=== PATIENT | female | born 1990 | race Asian ===

== ENCOUNTER 2017-07-18 09:55 | Emergency (ER) | payer OTHER ==
[2017-07-18 10:12] VITALS: BP 109/70
[2017-07-18] MEDS ORDERED: PROPARACAINE 0.5% OPHTH DROPS 15 ML EACHEYE STA (11:55)
--- NOTE | 2017-07-18 11:55 | ED Physician Documentation ---
PD HPI OPHTHO - Stated complaint Stated Complaint: RIGHT EYE PAIN - Chief complaint Chief Complaint: Heent - History obtained from History obtained from: Patient - History of Present Illness Timing - onset: How many days ago (2) Timing - duration: Days Timing - details: Gradual onset, Still present Location: Right (upper lateral eyelid) Quality / character: Burning, Aching Associated symptoms: Redness Contributing factors: No: Exposed to conjunctivitis, Wears contacts Similar symptoms before: Has not had sx before (does not have history of cold sores around lips nor orally.) Recently seen: Not recently seen Review of Systems Constitutional: denies: Fever, Chills Eyes: denies: Loss of vision, Decreased vision, Photophobia GI: denies: Nausea, Vomiting, Diarrhea Skin: reports: Lesions Musculoskeletal: denies: Neck pain, Back pain PD PAST MEDICAL HISTORY - Past Medical History Past Medical History: No - Past Surgical History Past Surgical History: No - Present Medications Home Medications: Ambulatory Orders Medication Instructions Recorded Confirmed Acyclovir 400 mg PO 5XD #25 tablet 07/18/17 Mupirocin 1 applic TP TID #15 oint...g. 07/18/17 Naproxen 375 mg PO BID #20 tablet 07/18/17 Sulfamethox/Trimeth 800/160 1 each PO BID #10 tablet 07/18/17 [Bactrim Ds 800/160] - Allergies Allergies/Adverse Reactions: Allergies Allergy/AdvReac Type Severity Reaction Status Date / Time No Known Drug Allergies Allergy Verified 07/18/17 10:12 - Social History Does the pt smoke?: No Smoking Status: Never smoker Does the pt drink ETOH?: No Does the pt have substance abuse?: No - Immunizations Immunizations are current?: Yes - POLST Patient has POLST: No PD ED PE NORMAL - Vitals Vital signs reviewed: Yes - General General: Alert and oriented X 3, No acute distress, Well developed/nourished - HEENT HEENT: PERRL, EOMI, Pharynx benign (no lesions lips nor intraoral. ), Other ( right upper lateral eyelid with patch of redness that has fine vesicules of clear fluid, without purulence. Fundus is normal appearing. ) - Neck Neck: Supple, no meningeal sign, No bony TTP - Cardiac Cardiac: RRR, No murmur - Respiratory Respiratory: Clear bilaterally Results - Vitals Vitals: Vital Signs - 24 hr 07/18/17 10:10 Temperature 36.8 C Heart Rate 83 Respiratory 16 Rate Blood Pressure 109/70 O2 Saturation 99 Oxygen O2 Source Room air PD MEDICAL DECISION MAKING - ED course Complexity details: considered differential (has patch of small vesicular lesions on red base focally at lateral aspect upper eyelid. Seems c/w herpatic but no history of cold sores, or staph-like impetigo.), d/w patient Departure - Departure Disposition: 01 Home, Self Care Clinical Impression: Facial rash, Impetigo Condition: Stable Record reviewed to determine appropriate education?: Yes Instructions: ED Impetigo Ch Follow-Up: J[facility] May [Provider Group] Prescriptions: Acyclovir 400 mg PO 5XD #25 tablet Mupirocin 1 applic TP TID #15 oint...g. Naproxen 375 mg PO BID #20 tablet Sulfamethox/Trimeth 800/160 [Bactrim Ds 800/160] 1 each PO BID #10 tablet Comments: The rash looks like an infection and may be bacterial, called impetigo, and treated with mupirocin topical antibiotic and Bactrim oral antibiotic. Cleanse the area 2-3 times a day and apply the antibiotic ointment. You can use the lidocaine anesthetic prior to that or any time to help with the discomfort of the pain. Use naproxen twice daily for pain and inflammation and add Tylenol if needed for pain. The rash could also be viral such as herpes virus (like a cold sore) and so we will treated with an antiviral for the next couple of days at least until the viral culture returned as a result. Will try to call you with that result in 2-3 days. Discharge Date/Time: 07/18/17 13:42
[2017-07-18] MEDS ORDERED: PROPARACAINE 0.5% OPHTH DROPS 15 ML ONE (12:03)
[2017-07-18] MEDS ORDERED: LIDOCAINE OINTMENT 5% 35.44 GM TUBE TOP STA (13:11)
[2017-07-18] MEDS ORDERED: ACETAMINOPHEN 325 MG TABLET PO STA (13:12)
[2017-07-18] MEDS ORDERED: SULFAMETH/TRIMETH DS 800/160 MG TABLET PO STA (13:12)
[2017-07-18] MEDS ORDERED: LIDOCAINE OINTMENT 5% 35.44 GM TUBE ONE (13:25)
[2017-07-18] MEDS ORDERED: ACETAMINOPHEN 325 MG TABLET PO ONE (13:25)
[2017-07-18] MEDS ORDERED: SULFAMETH/TRIMETH DS 800/160 MG TABLET PO ONE (13:25)
== END 2017-07-18 13:42 | disposition home or self-care (01) ==
LOC: ED 09:55
DX: L01.00 Impetigo, unspecified (principal); R21 Rash and other nonspecific skin eruption
CPT/HCPCS: 87529; 99283; A9270; J3490

== ENCOUNTER 2021-01-16 17:00 | Outpatient (CLI) | payer OTHER | END 2021-01-16 18:20 | disposition home or self-care (01) | LOC: WFO 17:00 → FBP 17:05 → WFO 18:20 | PROVIDERS: ATTEND Pediatrics | DX: Z39.1 Encounter for care and examination of lactating mother (principal) | CPT/HCPCS: 99404 ==